=== PATIENT | male | born 1970 | race African-American/Black ===

== ENCOUNTER 2018-10-17 17:06 | Emergency (ER) | payer SELFPAY ==
[~2018-10-17] VITALS: Ht 195.6 cm; Wt 92.1 kg
[2018-10-17 17:14] VITALS: Ht 195.6 cm; Wt 92.1 kg
[2018-10-17 21:07] VITALS: BP 109/71
== END 2018-10-17 21:07 | disposition home or self-care (01) ==
LOC: ED 17:06
DX: B34.9 Viral infection, unspecified (principal); Z88.0 Allergy status to penicillin
CPT/HCPCS: J1885; Q0162

== ENCOUNTER 2019-09-06 16:21 | Emergency (ER) | payer OTHER ==
[~2019-09-06] VITALS: Ht 195.6 cm; Wt 91.6 kg
[2019-09-06 16:28] VITALS: Ht 195.6 cm; Wt 91.6 kg
[2019-09-06 17:47] VITALS: BP 165/72
== END 2019-09-06 17:47 | disposition home or self-care (01) ==
LOC: ED 16:21
DX: S16.1XXA Strain of muscle, fascia and tendon at neck level, initial encounter (principal); Z88.0 Allergy status to penicillin; V49.9XXA Car occupant (driver) (passenger) injured in unspecified traffic accident, initial encounter; Y93.I9 Activity, other involving external motion; Y92.413 State road as the place of occurrence of the external cause; Y99.8 Other external cause status

== ENCOUNTER 2020-03-20 20:27 | Emergency (ER) | payer OTHER ==
[~2020-03-20] VITALS: Ht 195.6 cm; Wt 95.7 kg
[2020-03-20 20:34] VITALS: Ht 195.6 cm; Wt 95.7 kg
[2020-03-20 21:37] LABS: microscopic required? NO
[2020-03-20 21:42] LABS: UA SPECIFIC GRAVITY >=1.030 (1.005-1.035); urine erythrocyte NEGATIVE (NEGATIVE)
[2020-03-20 21:51] LABS: CALCIUM 8.7 mg/dL (8.5-10.1); CARBON DIOXIDE 31.5 mmol/L (21-32); CHLORIDE SERUM 106 mmol/L (98-107); CREATININE SERUM 1.2 mg/dL (0.7-1.3); GFR1 > 60 mL/min; GLUCOSE SERUM 94 mg/dL (74-106); POTASSIUM SERUM 3.3 mmol/L (3.5-5.1); SODIUM SERUM 141 mmol/L (136-145)
[2020-03-20 21:55] LABS: BASOPHIL % 0.6 % (0-2); PLATELET COUNT 157 x10^3mcL (130-400); RED CELL DISTRIBUTION WIDTH 13.6 % (11.5-14.5)
[2020-03-20 22:03] LABS: ALBUMIN 3.8 g/dL (3.4-5.0); ALKALINE PHOSPHATASE 54 U/L (46-116); ALT/SGPT 41 U/L (16-63); AST/SGOT 34 U/L (15-37); BILIRUBIN TOTAL 0.92 mg/dL (0.20-1.00); LIPASE 82 IU/L (73-393); T4(THYROXINE) 7.9 ug/dL (4.7-13.3); TOTAL PROTEIN, SERUM 7.5 g/dL (6.4-8.2)
[2020-03-20 22:10] LABS: AMPHETAMINE QUAL UR NONE DETECTED (See below)
[2020-03-20 22:10] LABS: CHOLESTEROL 223 mg/dL (<200); HDL CHOLESTEROL 68 mg/dL (40-60)
[2020-03-20 23:45] VITALS: BP 112/72
== END 2020-03-20 23:45 | disposition home or self-care (01) ==
LOC: ED 20:27
PROVIDERS: Emergency Medicine
DX: E87.6 Hypokalemia (principal); R00.2 Palpitations; Z98.890 Other specified postprocedural states; Z88.0 Allergy status to penicillin
CPT/HCPCS: 36415; 83880; 85378; G0480; Q0092

== ENCOUNTER 2020-04-25 11:59 | Emergency (ER) | payer OTHER ==
[~2020-04-25] VITALS: Ht 195.6 cm; Wt 93.0 kg
[2020-04-25 12:08] VITALS: Ht 195.6 cm; Wt 93.0 kg
[2020-04-25 12:40] LABS: BASOPHIL % 0.6 % (0-2); PLATELET COUNT 152 x10^3mcL (130-400); RED CELL DISTRIBUTION WIDTH 14.5 % (11.5-14.5)
[2020-04-25 13:06] LABS: CALCIUM 8.3 mg/dL (8.5-10.1); CHLORIDE SERUM 108 mmol/L (98-107); CREATININE SERUM 0.9 mg/dL (0.7-1.3); GFR1 > 60 mL/min; GLUCOSE SERUM 92 mg/dL (74-106); POTASSIUM SERUM 3.8 mmol/L (3.5-5.1); SODIUM SERUM 144 mmol/L (136-145)
[2020-04-25 13:11] LABS: ALBUMIN 3.3 g/dL (3.4-5.0); ALKALINE PHOSPHATASE 45 U/L (46-116); ALT/SGPT 31 U/L (16-63); AST/SGOT 32 U/L (15-37); BILIRUBIN TOTAL 0.5 mg/dL (0.20-1.00); TOTAL PROTEIN, SERUM 6.7 g/dL (6.4-8.2)
[2020-04-25 15:16] VITALS: BP 130/70
== END 2020-04-25 15:16 | disposition home or self-care (01) ==
LOC: ED 11:59
PROVIDERS: Emergency Medicine
DX: R07.2 Precordial pain (principal); R06.02 Shortness of breath
CPT/HCPCS: 83880; Q0092

== ENCOUNTER 2020-06-11 22:46 | Emergency (ER) | payer OTHER ==
[~2020-06-11] VITALS: Ht 195.6 cm; Wt 105.7 kg
[2020-06-11 23:03] VITALS: Ht 195.6 cm; Wt 105.7 kg
[2020-06-12 01:55] VITALS: BP 111/77
== END 2020-06-12 01:55 | disposition home or self-care (01) ==
LOC: ED 22:46
DX: M25.512 Pain in left shoulder (principal); Z88.0 Allergy status to penicillin; X58.XXXA Exposure to other specified factors, initial encounter; Y93.67 Activity, basketball; Y92.89 Other specified places as the place of occurrence of the external cause; Y99.8 Other external cause status